=== PATIENT | male | born 1960 | race Caucasian/White ===

== ENCOUNTER 2023-04-26 16:24 | Outpatient (REF) | payer MEDICARE, MEDICAID, SELFPAY ==
[2023-04-26 18:03] LABS: Glucose Random 83 mg/dL (60-115)
[2023-04-26 18:51] LABS: Folate 10.9 ng/mL (> or = 4.0)
[2023-04-27 02:59] LABS: Vitamin B12 559 pg/mL (200-900)
[2023-04-27 05:15] LABS: Estimated Average Glucose 108 mg/dL; Hemoglobin A1c % 5.4 % (<6.0)
[2023-04-30 17:08] LABS: Vitamin B1 13 nmol/L (8-30)
[2023-05-01 15:28] LABS: Vitamin B6 14.4 ng/mL (2.1-21.7)
== END 2023-04-26 16:25 | disposition home or self-care (01) ==
LOC: HO.HHCL 16:24
PROVIDERS: Absent Provider Family Medicine; PCP Family Medicine; Visit Provider Internal Medicine
DX: M54.6 Pain in thoracic spine (principal); R73.01 Impaired fasting glucose
CPT/HCPCS: 36415; 82607; 82746; 82947; 83036; 84207; 84425

== ENCOUNTER 2023-07-19 13:34 | Outpatient (REF) | payer MEDICARE, MEDICAID, SELFPAY ==
--- NOTE | ~2023-07-19 | XR_ITS ---
EXAMINATION: XR THORACOLUMBAR SPINE CLINICAL INFORMATION: Worsening neck and back pain COMPARISON: Same-day chest, lumbar and cervical spine TECHNIQUE: 3 views of the thoracic spine FINDINGS: The vertebral alignment is normal. No intrinsic bony abnormality. The height of the vertebral bodies is well-maintained. There is mild disc space narrowing in the upper thoracic spine with anterior marginal osteophyte formation. Anterior marginal osteophyte formation is also seen in the lower thoracic spine. The paraspinal soft tissues are normal. XR/XR thoracic spine 2V IMPRESSION: 1. Mild degenerative changes. 2. No acute bony abnormality.
--- NOTE | ~2023-07-19 | XR_ITS ---
EXAMINATION: XR CERVICAL SPINE CLINICAL INFORMATION: Neck and back pain COMPARISON: None available. TECHNIQUE: 3 views of the cervical spine were obtained. FINDINGS: The tip of the odontoid is obscured on the open-mouth view. C7 is mostly obscured by the soft tissues of the patient's shoulder on the lateral view. No fracture. Prevertebral soft tissues are within normal limits. There is marked disc space narrowing with marginal osteophyte formation at C5-C6. There is mild disc space narrowing with marginal osteophyte formation at C6-C7. There is mild retrolisthesis of C3 respect to C4. XR/XR cervical spine 3V IMPRESSION: 1. Degenerative disc disease at C5-C6 and C6-C7. 2. Mild retrolisthesis of C3 respect to C4.
--- NOTE | ~2023-07-19 | XR_ITS ---
EXAMINATION: XR CHEST CLINICAL INFORMATION: Fatigue of one year's duration; former smoker; history of asthma. COMPARISON: Prior CT chest dated 12/23/2021. TECHNIQUE: Frontal and lateral views of the chest were obtained. FINDINGS: The heart, great vessels, pulmonary vasculature and mediastinum are normal. The lungs show no focal infiltrate, effusion or pneumothorax. There is no acute osseous abnormality. There is an old ununited fracture of the mid left clavicle. XR/XR chest 2V IMPRESSION: No active cardiopulmonary disease.
--- NOTE | ~2023-07-19 | XR_ITS ---
EXAMINATION: XR LUMBOSACRAL SPINE CLINICAL INFORMATION: Worsening neck and back pain COMPARISON: Same-day chest, cervical spine and thoracic spine TECHNIQUE: Three views of the lumbosacral spine. FINDINGS: There 5 nonrib-bearing lumbar-type vertebral bodies the height of vertebral bodies is well-maintained. There is straightening of the usual lumbar lordosis which can be seen with muscle spasm. There is mild disc space narrowing at L3-L4 and L4-L5. There is multilevel degenerative facet joint disease, most marked from L3 through S1. Anterior marginal osteophytes are seen at all lumbar levels. There is mild retrolisthesis of L4 with respect to L5. XR/XR lumbar spine 2-3V IMPRESSION: 1. Muscle spasm. 2. Degenerative disc disease at L3-L4 and L4-L5. 3. Multilevel degenerative facet joint disease. 4. Mild retrolisthesis of L4 with respect to L5.
== END 2023-07-19 13:35 | disposition home or self-care (01) ==
LOC: HO.HHCX 13:34
PROVIDERS: Visit Provider Family Medicine
DX: Z13.89 Encounter for screening for other disorder (principal)
CPT/HCPCS: 71046; 72040; 72070; 72100

== ENCOUNTER 2023-07-19 14:37 | Outpatient (REF) | payer MEDICARE, MEDICAID, SELFPAY ==
[2023-07-19 16:30] LABS: Hematocrit 42.9 % (42.0-52.0); Hemoglobin 14.8 g/dl (14.0-18.0); Mean Corpuscular HGB Conc 34.5 g/dl (31.0-36.0); Mean Corpuscular Hemoglobin 32.5 pg (27.0-33.0); Mean Corpuscular Volume 94.1 fL (80.0-98.0); Mean Platelet Volume 10.1 fL (9.4-12.4); Platelet Count 279 X10*3/uL (160-400); Red Blood Count 4.56 X10*6/uL (4.60-5.80); Red Cell Distribution Width 14.1 % (11.0-16.0); White Blood Count 6.5 X10*3/uL (4.8-10.8)
[2023-07-19 16:55] LABS: Alanine Aminotransferase 30 U/L (0-40); Albumin Level 4.6 g/dL (3.5-5.0); Alkaline Phosphatase 43 U/L (39-117); Anion Gap 15 (12-20); Aspartate Amino Transferase 22 U/L (5-37); Bilirubin Direct 0.2 mg/dL (0.0-0.5); Bilirubin Total 0.7 mg/dL (0.0-1.0); Blood Urea Nitrogen 21 mg/dL (9-16); Carbon Dioxide 23 mmol/L (22-29); Chloride 108 mmol/L (96-108); Cholesterol 233 mg/dL (<200); Estimated Glomerular Filt Rate > 60; Glucose Random 84 mg/dL (60-115); HDL Cholesterol 61 mg/dL (>40); LDL Cholesterol Calculated 134 mg/dL (<100); Potassium 4.6 mmol/L (3.3-5.1); Sodium 141 mmol/L (135-145); Total Protein 7.6 g/dL (6.5-8.0); Triglycerides 192 mg/dL (<150)
[2023-07-19 17:05] LABS: Estimated Average Glucose 114 mg/dL; Hemoglobin A1c % 5.6 % (<6.0)
[2023-07-19 17:17] LABS: Thyroid Stimulating Hormone 1.63 uIU/mL (0.32-4.0); Vitamin D 25-OH Total 47.4 ng/mL (>30)
[2023-07-19 17:23] LABS: Folate 12.3 ng/mL (> or = 4.0); Vitamin B12 666 pg/mL (200-900)
[2023-07-20 04:30] LABS: HBS Num1 26.95 mIU/mL (0-7.99); HBsAGNum1 0.23 S/CO (0.00-0.99); HIV AB/AG Nonreactive (Nonreactive); HIV Num 1 0.05 S/CO (0.00-0.99); Hepatitis B Surface Antigen Negative (Negative); ~HepC Num1 10.11 S/CO (0.00-0.79); ~Hepatitis B Surface Antibody REACTIVE (Nonreactive); ~Hepatitis C Antibody Reactive (Nonreactive)
[2023-07-20 05:46] LABS: CT PCR NOT DETECTED (Not Detect.); NG PCR NOT DETECTED (Not Detect.)
[2023-07-20 09:08] LABS: RPR Rapid Plasma Reagin NON-REACTIVE (NON-REACTIVE)
[2023-07-21 18:33] LABS: HCV Log PCR <1.18 NOT DETECTED Log IU/mL (NOT DETECTED); HepC Viral Load <15 NOT DETECTED IU/mL (NOT DETECTED)
[2023-07-23 16:53] LABS: Testosterone, Total 337 ng/dL (250-1100)
== END 2023-07-19 14:38 | disposition home or self-care (01) ==
LOC: HO.HHCL 14:37
PROVIDERS: Visit Provider Family Medicine
DX: Z11.59 Encounter for screening for other viral diseases (principal); Z11.4 Encounter for screening for human immunodeficiency virus [HIV]; M54.2 Cervicalgia; G89.29 Other chronic pain; M54.9 Dorsalgia, unspecified; Z72.89 Other problems related to lifestyle; R53.83 Other fatigue; Z20.2 Contact with and (suspected) exposure to infections with a predominantly sexual mode of transmission; R79.9 Abnormal finding of blood chemistry, unspecified; G47.33 Obstructive sleep apnea (adult) (pediatric); Z87.891 Personal history of nicotine dependence
CPT/HCPCS: 0353U; 36415; 71046; 72040; 72070; 72100; 80048; 80061; 80076; 82306; 82607; 82746; 83036; 84403; 84425; 84439; 84443; 85027; 86592; 86706; 86803; 87340; 87389; 87522

== ENCOUNTER 2023-10-04 07:58 | Outpatient (REF) | payer MEDICARE, MEDICAID, SELFPAY ==
--- NOTE | ~2023-10-04 | US_ITS ---
EXAMINATION: US ABDOMEN COMPLETE CLINICAL INFORMATION: Fatty liver, follow up. COMPARISON: CT chest 12/23/2021. TECHNIQUE: Real-time imaging of the abdominal viscera. FINDINGS: PANCREAS: Pancreas could not be seen as it was obscured by bowel gas. ABDOMINAL AORTA: The proximal, mid, and distal segments are normal in caliber. INFERIOR VENA CAVA: Visualized portions are normal. LIVER: The liver is normal in size. The liver contour is normal. Parenchymal echogenicity is normal. No focal hepatic lesion. There is no intrahepatic biliary duct dilatation seen. GALLBLADDER: Normal. The gallbladder is physiologically distended without evidence of stones, sludge, polyps, wall thickening or pericholecystic fluid. COMMON BILE DUCT: Normal in caliber measuring 0.3 cm in diameter. RIGHT KIDNEY: No hydronephrosis or renal calculi. The kidney measures 12.2 cm in maximum dimension. A benign 0.9 cm mid renal Bosniak class I renal cyst is noted which requires no additional imaging or follow up. No solid renal masses are seen. LEFT KIDNEY: Normal. No hydronephrosis. No renal calculi or focal parenchymal lesions. The kidney measures 11.7 cm in maximum dimension. SPLEEN: Normal. The spleen measures 8.5 cm in maximum dimension. FREE FLUID: None. US/US abdomen complete IMPRESSION: No significant abnormality is seen.
--- NOTE | 2023-10-04 08:40 | HM_ITS ---
Conclusion: 1. Patient was monitored for total period of 1 day and 3 hours 2. Baseline was normal sinus rhythm with average heart of 83 beats per minute 3. No significant pauses noted 4. Very frequent PACs noted with total burden of 21.5% with frequent short runs of SVTs, longest lasting 11 beats and the fastest 120 beats per minute consistent with atrial tachycardia 5. Frequent PVCs noted with total burden of 1.5% 6. No patient reported events MTDD
== END 2023-10-04 07:59 | disposition home or self-care (01) ==
LOC: HO.US 07:58
PROVIDERS: PCP Family Medicine; Visit Provider Family Medicine
DX: K76.0 Fatty (change of) liver, not elsewhere classified (principal); I49.1 Atrial premature depolarization
CPT/HCPCS: 76700; 93225

== ENCOUNTER → 2023-10-04 08:40 | Outpatient (BNV) | payer MEDICARE, MEDICAID, SELFPAY | PROVIDERS: PCP Family Medicine; Visit Provider Internal Medicine Cardiovascular Disease | DX: I49.1 Atrial premature depolarization (principal); I49.3 Ventricular premature depolarization | CPT/HCPCS: 93227 ==

== ENCOUNTER → 2023-10-06 20:30 | Outpatient (REF) | payer MEDICARE, MEDICAID, SELFPAY | LOC: HO.SL 20:30 | PROVIDERS: PCP Family Medicine; Visit Provider Family Medicine | DX: Z13.89 Encounter for screening for other disorder (principal) ==

== ENCOUNTER 2023-12-02 11:42 | Outpatient (REF) | payer MEDICARE, MEDICAID, SELFPAY ==
--- NOTE | ~2023-12-02 | XR_ITS ---
EXAMINATION: XR SACRUM AND COCCYX CLINICAL INFORMATION: Fell on ImaCore 5 days ago. Now with persistent pain. COMPARISON: None available. TECHNIQUE: 2 views of the sacrum and 2 views of the coccyx were obtained. FINDINGS: No acute fracture identified. Partially imaged left femoral intramedullary fixation diego and screw. No bone, joint or soft tissue abnormality is appreciated. Mild degenerative changes of the incidentally visualized lower lumbar spine. Aortoiliac calcification. XR/XR sacrum coccyx min 2V IMPRESSION: Unremarkable examination. Electronically signed by: Kaleb Biggs MD 12/02/2023 02:31 PM EDT
== END 2023-12-02 11:43 | disposition home or self-care (01) ==
LOC: HO.HHCX 11:42
PROVIDERS: Visit Provider Family Medicine
DX: M53.3 Sacrococcygeal disorders, not elsewhere classified (principal)
CPT/HCPCS: 72220

== ENCOUNTER 2024-03-23 09:57 | Outpatient (AMB) | payer MEDICARE, MEDICAID, SELFPAY ==
--- NOTE | 2024-03-23 09:59 | MHC.OFFVIS ---
Vital Signs 03/23/24 10:00 Height 5 ft 8 in Weight 231 lb 7.766 oz BMI 35.2 BP 122/78 Blood Pressure Location Lt brachial Position Sitting Pulse 92 Intake Visit Reasons: AWAKE OVERNIGHT MONITOR/ Dr Benites/ supraventricular premature beats Intake Note: New patient PVC had holter had echo at [facility] [place] feeling fine [employer] Estimator Required: No Packaging Supervisor: Packaging Supervisor Present Accompanied by: Spouse Allergies No Known Allergies Allergy (Verified 03/23/24 10:05) Medication List - Last Reconciled 03/23/24 by Jose Fatima MD No Known Home Meds HPI Comments Details: Bhupinder was referred here for management of cardiac arrhythmias. He is a 64-year-old male with prior history of sleep apnea, said has had sleep apnea for many years but currently not on CPAP therapy as he thinks he got a pulmonary infection related to his old CPAP machine. He had a recent sleep study which shows very severe obstructive sleep apnea. Has not seen a sleep specialist as yet. He also had a event monitor done for irregular heartbeat which showed frequent PACs with short bursts of SVT without any evidence of atrial fibrillation. He also had frequent PVCs. He said he was known to have irregular heartbeats since he was a teenager. He denies any symptoms of chest pain or shortness of breath. Complains of increased fatigue over the last year. He was no clear heart failure symptoms of orthopnea, PND, leg edema. Denies any exertional chest pain. He was referred here for further management of cardiac arrhythmias although he is very evasive about the whole healthcare system. Echocardiogram done last summer at [facility] showed normal LV ejection fraction with normal left atrial chamber size with mildly dilated ascending aorta normal cardiac valvular function [facility] Medical History Severe obstructive sleep apnea Surgical History History of surgery on lower extremity Hx of knee surgery Family History Father Diabetes Mother No problems noted. Social History Patient Tobacco Use Status: Former Tobacco user Review of Systems Const Denies chills, Denies daytime sleepiness, Denies fatigue, Denies fever(s), Denies frequent falls, Denies poor appetite, Denies snoring, Denies stops breathing during sleep, Denies weakness, Denies weight gain and Denies weight loss Eyes Denies loss of vision ENT Denies dizziness and Denies hearing loss Card Denies chest pain, Denies claudication, Denies leg edema, Denies lightheadedness, Denies palpitations, Denies dyspnea, Denies dyspnea on exertion and Denies orthopnea Resp Denies cough, Denies excessive phlegm production, Denies dyspnea, Denies dyspnea on exertion, Denies snoring and Denies wheezing GI Denies abdominal pain, Denies hematochezia, Denies change in bowel habits, Denies nausea and Denies vomiting Denies dysuria and Denies urinary frequency Musc Denies arthralgias, Denies muscle weakness, Denies numbness and Denies other (frequent falls) Skin/Breast Denies nail changes and Denies rash Neuro Denies Abnormal speech present, Denies dizziness, Denies frequent falls, Denies loss of vision, Denies memory loss, Denies numbness and Denies weakness Psych Denies depression and Denies memory loss Endo Denies fatigue and Denies palpitations Wm/Lymph Reports easy bruising and Reports other (anemia) Aller/Immun Denies wheezing Physical Exam Vital Signs: Last Vital Signs Pulse 92 03/23/24 10:00 BP 122/78 03/23/24 10:00 BMI result Body Mass Index 35.2 Const General: cooperative, comfortable, no acute distress, alert and awake Nutritional Appearance: obese Orientation/consciousness: patient oriented x3 Limitations: no limitations HEENT Head: Yes normocephalic and Yes atraumatic Neck Neck: Yes trachea midline, Yes supple and Yes no JVD Resp Effort & Inspection: normal respiratory effort Auscultation: clear to auscultation bilaterally Cardio Jugular venous distension: no JVD Palpation: normal PMI Rate: regular rate Rhythm: abnormal rhythm with ectopic beats GI Auscultation: normal bowel sounds Skin General skin exam: no rashes or lesions noted Neuro General: patient oriented x3 and no focal motor deficits Speech: No Abnormal speech present Extrem General: Yes no clubbing, cyanosis or edema Psych Appearance: grossly normal Office Procedures EKG Details: EKG shows normal sinus rhythm with frequent PVCs with slightly variable inter coupling [id number], Complete Assessment & Plan Assessment & Plan (1) Cardiac arrhythmia: Code(s): I49.9 - Cardiac arrhythmia, unspecified Category: Medical Plan: Frequent PACs with short burst of SVT without any evidence of atrial fibrillation as well as frequent PVCs which also noted on today's EKG. Patient has absolutely no symptoms related to it. Most likely cause for his cardiac arrhythmias are underlying untreated obstructive sleep apnea which is very severe. Have taken the liberty to refer him to sleep specialist for further management of sleep apnea which should help with management of his cardiac arrhythmias. Discussed about management of cardiac arrhythmias especially frequent cardiac arrhythmias to reduce cardiac excitability with beta-john therapy. He is very resistant or hesitant to start therapy at this point time. Like to do some more office research. We discussed about it. Advised to avoid stimulants such as caffeine and alcohol. Discussed pathophysiology of cardiac arrhythmias. Advised to seek emergency care if he was sudden-onset severe palpitation prolonged irregular heartbeat as he is at risk for development of atrial fibrillation. Participate in weight loss program was discussed. He agrees to take metoprolol therapy I would like to perform a repeat Holter monitor on metoprolol therapy to assess response. He will think about it Will follow up in the clinic if need be. Thank you for allowing me to partake in his care Orders: Referrals Sleep Medicine Referral G47.33 - Obstructive sleep apnea (adult) (pediatric) Coding Level of Care Code New Pt Level 4 (00092) Complex EM visit Add On G2211 Diagnoses Cardiac arrhythmia I49.9 CPT Codes EKG - CPT: 39523-[id number], Complete ([id number])
[2024-03-23 10:00] VITALS: BP 122/78; PULSE 92; BMI 35.2
== END 2024-03-23 10:38 | disposition home or self-care (01) ==
PROVIDERS: PCP Family Medicine; Visit Provider Internal Medicine Cardiovascular Disease
DX: I49.9 Cardiac arrhythmia, unspecified (principal)
CPT/HCPCS: 93010; 99214; G2211

== ENCOUNTER → 2024-03-23 09:57 | Outpatient (BNVA) | payer MEDICARE, MEDICAID, SELFPAY | PROVIDERS: PCP Family Medicine; Visit Provider Internal Medicine Cardiovascular Disease | DX: I49.9 Cardiac arrhythmia, unspecified (principal); R94.31 Abnormal electrocardiogram [ECG] [EKG] | CPT/HCPCS: 93005; 99212 ==

== ENCOUNTER 2024-05-10 12:44 | Outpatient (REF) | payer MEDICARE, MEDICAID, SELFPAY ==
--- NOTE | ~2024-05-10 | XR_ITS ---
EXAMINATION: XR CHEST CLINICAL INFORMATION: f/u pna COMPARISON: 07/19/2023. TECHNIQUE: 2 views of the chest were obtained. FINDINGS: The cardiac, hilar, and mediastinal contours are normal. The lungs are clear bilaterally. There is no pneumothorax or pleural effusion. 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 Soft tissues appear normal. XR/XR chest 2V IMPRESSION: No active pulmonary disease. Electronically signed by: Bienvenido Rainey MD 05/10/2024 01:43 PM EST
--- OUTSIDE RECORDS SUMMARY | 2024-05-10 15:37 | XMS_ITS | Encounter Summary ---
Author Organization [employer] Address [address] [facility] [address] [place] [address] Care Team Providers Care Jailer Name Role Phone JenniferNatalie blue Primary Care Provider [phone] Encounter Details Date Type Department Care Team (Latest Contact Info) Description 04/26/2024 Travel Social History Tobacco Use Types Packs/Day Years Used Date Smoking Tobacco: Former Cigarettes Q uit: 03/15/2023 Smokeless Tobacco: Never Alcohol Use Standard Drinks/Week Comments Not Currently 0 (1 standard drink = 0.6 oz pur e alcohol) oca Housing Stability Answer Date Recorded What is your housing situation today? I have giovanna quan 01/15/[address] you li ve. Do you have problems with any of the following? None of the above 01/15/2023 Food Insecurity Answer Date Recorded Within the past 12 months, y ou worried that your food would run out before you got money to buy more: Never True 01/15/2023 Within the past 12 months,th e food you bought just didn't last and you didn't have enough money to get more: Never True 05/2022 Transportation Answer Date Recorded In the past 12 months, has l ack of transportation kept you from medical appts, meetings, work or from getting things needed for daily living? No 01/15/2023 Utilities Answer Date Recorded In the past 12 months, has t he electric, gas, oil or water company threatened to shut off services in your home? No 01/15/2023 Depression Answer Date Recorded Patient Health Questionnaire-2 Score 0 04/26/2023 Sex and Gender Information Value Date Recorded Sex Assigned at Male 01/12/2022 10:23 AM EDT Legal Sex Male 10:23 AM EDT Gender Identity Male 07/30/2022 10:45 AM EDT Sexual Orientation Straight 07/30/2022 10 :51 AM EDT documented as of this encounter Plan of Treatment Not on file documented as of this encounter Visit Diagnoses Not on filedocumented in this encounter Care Teams Jailer Relationship Specialty Start Date End Date Natalie Benites DO [address] [place] [id number] PCP - General Family Medicine 07/30/22 documented as of this encounter
--- OUTSIDE RECORDS SUMMARY | 2024-05-10 15:37 | XMS_ITS | Encounter Summary ---
Author Organization [employer] Address [address] [facility] [address] [place] [address] Care Team Providers Care Directory Carrier Name Role Phone JenniferNatalie blue Primary Care Provider [phone] Encounter Details Date Type Department Care Team (Latest Contact Info) Description 05/10/2024 Travel Social History Tobacco Use Types Packs/Day Years Used Date Smoking Tobacco: Former Cigarettes Q uit: 03/15/2023 Smokeless Tobacco: Never Alcohol Use Standard Drinks/Week Comments Not Currently 0 (1 standard drink = 0.6 oz pur e alcohol) oca Depression Answer Date Recorded Patient Health Questionnaire-9 Score 5 05/10/2024 Patient Health Questionnaire-9 Score 5 05/10/2024 Last PHQ-9: Questionnaire Data Not on file 0 05/10/2024 Housing Stability Answer Date Recorded What is your housing situation today? I have giovannajason quan 05/10/[address] you li ve. Do you have problems with any of the following? Mold;Oven or stove not working 05/10/2024 Food Insecurity Answer Date Recorded Within the past 12 months, y ou worried that your food would run out before you got money to buy more: Never True 05/10/2024 Within the past 12 months,th e food you bought just didn't last and you didn't have enough money to get more: Never True Transportation Answer Date Recorded In the past 12 months, has l ack of transportation kept you from medical appts, meetings, work or from getting things needed for daily living? No 05/10/2024 Utilities Answer Date Recorded In the past 12 months, has t he electric, gas, oil or water company threatened to shut off services in your home? No 05/10/2024 Depression Answer Date Recorded Patient Health Questionnaire-2 Score 1 05/10/2024 Internet Access Answer Date Recorded Internet Access Q1 Yes 05/10/2024 Internet Access Q2 Not on file 05/10/2024 Sex and Gender Information Value Date Recorded Sex Assigned at Male 01/12/2022 10:23 AM EDT Legal Sex Male 10:23 AM EDT Gender Identity Male 07/30/2022 10:45 AM EDT Sexual Orientation Straight 07/30/2022 10 :51 AM EDT documented as of this encounter Plan of Treatment Not on file documented as of this encounter Visit Diagnoses Not on filedocumented in this encounter Additional Health Concerns Assessment Noted Time PHQ-9 Depression Total Score: 5 05/10/19 25 1:24 PM EST documented as of this encounter Care Teams Directory Carrier Relationship Specialty Start Date End Date Natalie Benites DO [address] [place] [address] PCP - General Family Medicine 07/30/22 documented as of this encounter
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
--- OUTSIDE RECORDS SUMMARY | 2024-05-10 15:37 | XMS_ITS | Encounter Summary ---
Author Organization [employer] Address [address] [place] [address] [address] [place] [address] Care Team Providers Care Arresting Gear Operator Name Role Phone Natalie Benites DO Primary Care Provider + [phone] Reason for Visit * Reason Onset Date Comments Appointment Request 04/26/2024 Encounter Details Date Type Department Care Team ([facility] st Contact Info) Description 04/26/2024 Telephone [facility] [address] [place], [place] [phone] Natalie Benites DO [address] [place], [place] [phone] Appointment Request Social History Tobacco Use Types Packs/Day Years [...] AM EDT documented as of this encounter Miscellaneous Notes * Telephone Encounter - Anne-Marie Guzman MA - 04/26/2024 10:10 AM EST Spoke with patient schedule sick visit 05/10/24 at 11:15am per PCP. documented in this encounter Plan of Treatment Not on file documented as of this encounter Visit Diagnoses Not on filedocumented in this encounter Care Teams Arresting Gear Operator Relationship Specialty Start Date End Date Natalie Benites DO [address] [place] [address] PCP - General Family Medicine 07/30/22 documented as of this encounter
--- OUTSIDE RECORDS SUMMARY | 2024-05-10 15:37 | XMS_ITS | Encounter Summary ---
Author Organization [employer] Address [address] [place] [address] [address] [place] [address] Care Team Providers Care Powertrain Control Systems Engineer Name Role Phone Natalie Benites DO Primary Care Provider + [phone] Reason for Visit * Reason Onset Date Comments Appointment Request 04/20/2024 Encounter Details Date Type Department Care Team ([facility] st Contact Info) Description 04/20/2024 Telephone [facility] [address] [place], [place] [phone] Natalie Benites DO [address] [place], [place] [phone] Appointment Request Social History Tobacco Use Types [...] Telephone Encounter - Anne-Marie Guzman MA - 04/20/2024 11:47 AM EST Left message to patient vm to call PCP office to schedule appt. documented in this encounter Plan of Treatment Not on file documented as of this encounter Visit Diagnoses Not on filedocumented in this encounter Care Teams Powertrain Control Systems Engineer Relationship Specialty Start Date End Date Natalie Benites DO [address] [place] [address] PCP - General Family Medicine 07/30/22 documented as of this encounter
--- OUTSIDE RECORDS SUMMARY | 2024-05-10 15:37 | XMS_ITS | Encounter Summary ---
Author Organization [employer] Address [address] [facility] [address] [place] [address] Care Team Providers Care Rug Cleaner Name Role Phone Kamari Natalie Primary Care Provider + [phone] Reason for Visit * Reason Comments Rib sore Encounter Details Date Type Department Care Team ([facility] st Contact Info) Description 04/28/2024 10:40 AM EST Office Visit [facility] [address] [place] [address] Shonna Mead MD [address] [place] [phone] Costochondritis, acute (Primary Dx) Social History Tobacco Use Types Packs/Day Years [...] AM EDT documented as of this encounter Last Filed Vital Signs Vital Sign Reading Time Taken Comments Blood Pressure 146/90 04/28/2024 10:07 AM EST Pulse 104 04/28/2024 10:07 AM EST Temperature 36.7 ??C (98 ??F) 04/28/2024 10:07 AM EST Respiratory Rate 20 04/28/2024 10:07 AM EST Oxygen Saturation 97% 04/28/2024 10:07 AM EST Inhaled Oxygen Concentration - - Weight 105 kg (231 lb 9.6 oz) 04/28/2024 10:07 A M EST Height 172.7 cm (5' 8 ) 04/28/2024 10:07 AM EST Body Mass Index 35.21 04/28/2024 10:07 AM EST documented in this encounter Progress Notes * Shonna Mead MD - 04/28/2024 10:40 AM EST Subjective Patient ID: Bhupinder Neal is a 64 y.o. male who presents for Rib sore. Chest Pain This is a new problem. The current episode started in the past 7 days. The onset quality is gradual. The problem has been unchanged. Pain location: rib ribs. The quality of the pain is described as dull. Review of Systems Constitutional: Negative. Respiratory: Negative. Cardiovascular: Negative. Negative for chest pain. Gastrointestinal: Negative. Genitourinary: Negative. Objective Physical Exam Constitutional: Appearance: Normal appearance. Cardiovascular: Rate and Rhythm: Normal rate and regular rhythm. Pulmonary: Effort: Pulmonary effort is normal. Breath sounds: Normal breath sounds. Chest: Chest wall: Tenderness present. Neurological: General: No focal deficit present. Mental Status: He is alert. Psychiatric: Mood and Affect: Mood normal. Behavior: Behavior normal. Assessment/Plan Diagnoses and all orders for this visit: Costochondritis, acute Comments: Advised to ice the area Advised warm compress Started on Topical voltaren gel .Ibuprofen as needed Other orders - fluticasone (Flovent) 44 MCG/ACT inhaler; Inhale 2 puffs in the morning and at bedtime. Rinse mouth with water after use to reduce aftertaste and incidence of candidiasis. Do not swallow. - albuterol (2.5 MG/3ML) 0.083% nebulizer solution; Take 3 mL (2.5 mg) by nebulization every 6 (six) hours if needed for wheezing. documented in this encounter Plan of Treatment Not on file documented as of this encounter Visit Diagnoses Diagnosis Costochondritis, acute- Primary documented in this encounter Care Teams Rug Cleaner Relationship Specialty Start Date End Date Natalie Benites DO [address] [place] [phone] PCP - General Family Medicine 07/30/22 documented as of this encounter
--- OUTSIDE RECORDS SUMMARY | 2024-05-10 15:37 | XMS_ITS | Encounter Summary ---
Author Organization [employer] Address [address] [place] [address] Care Team Providers Care Roof Bolter Helper Name Role Phone Natalie Benites DO Primary Care Provider [phone] Reason for Referral * Consultation (Routine) - Pending Review Specialty Diagnoses / Procedures Referred By Contac t Referred To Contact Cardiothoracic Surgery Diagnoses History of tobacco use Natalie Benites DO [address] [place] [address] Phone: tel: fax: Referral ID Status Reason Start Date Expiration Date Visits Requested Visits Authorized [id number] Pending Review Specialty Services Required 05/10/2024 05/10/2025 1 1 * Consultation (Urgent) - Pending Review Specialty Diagnoses / Procedures Referred By Contac t Referred To Contact Pulmonary Disease Diagnoses Chest congestion Natalie Benites DO [address] [place] [address] Phone: tel: fax: Referral ID Status Reason Start Date Expiration Date Visits Requested Visits Authorized [id number] Pending Review Specialty Services Required 05/10/2024 05/10/2025 1 1 * PFT (Routine) - Authorized Specialty Diagnoses / Procedures Referred By Contac t Referred To Contact Diagnoses Chest congestion Procedures Pulmonary Function Test Natalie Benites DO [address] [place] [address] Phone: tel: fax: [facility] [address], [place] Phone: tel: fax: Referral ID Status Reason Start Date Expiration Date V isits Requested Visits Authorized [id number] Authorized 05/10/2024 05/10/2025 1 1 Encounter Details Date Type Department Care Team (Late st Contact Info) Description 05/10/2024 11:15 AM EST Office Visit [facility] [address] [place], [place] [id number] Natalie Benites DO [address] [place] [address] Pneumonia of left lung due to infectious organism, unspecified part of lung (Primary Dx); Chest congestion; Obstructive sleep apnea; Cardiac arrhythmia, unspecified cardiac arrhythmia type; History of tobacco use Social History Tobacco Use Types Packs/Day Years [...] Mass Index 35.7 05/10/2024 11:16 AM EST documented in this encounter Plan of Treatment Scheduled Orders Name Type Priority Associated Diagnoses Orde r Schedule Pulmonary Function Test PFT Routine Chest congestion Expected: 05/10/2024, Expires: 11/07/2024 Scheduled Referrals Name Type Priority Associated Diagnoses Order Schedule Referral to Pulmonology Outpatient Referral Urgent Chest congestion Expected: 05/10/2024 (Approximate), Expires: 05/10/2025 Referral to Cardiothoracic Surgery Outpatient Referral Routine History of tobacco use Expected: 05/10/2024 (Approximate), Expires: 05/10/2025 documented as of this encounter Procedures Procedure Name Priority Date/Time Associated Diagnosis Comments XR CHEST 2 VIEWS STAT 05/10/2024 12:4 5 PM EST Pneumonia of left lung due to infectious organism, unspecified part of lung documented in this encounter Results * XR Chest 2 Views (05/10/2024 12:45 PM EST) Anatomical Region Laterality Modality Chest Radiographic Suad ging 05/10/2024 12:4 5 PM EST Narrative 05/10/2024 1:46 PM EST ?[facility] ?[address] ?[place] [id number] ?XRay Report ? Signed ? Patient: Ángel,Bhupinder M ?MR#: [id number] ?? [id number] ? : 1960 ?Acct:[id number] ? Age/Sex: 64 / M ?ADM Date: 05/10/24 ? Loc: HO.HHCX ? Attending Dr: Natalie Benites DO ? Ordering Physician: Natalie Benites DO ?? Date of Service: 05/10/24 ?? Procedure(s): XR chest 2V ?? Accession Number(s): [id number] ? cc: Natalie Benites DO ? EXAMINATION: ?? XR CHEST [...] DD/ 1245 ? TD/TT: 05/10/24 1300 ? Assistant Basketball Coach: ? Procedure Note Lizzie, Yas - 05/10/2024 [facility] [address] [place] [address] XRay Report Signed Patient: Bhupinder Neal [facility]#: [id number] : 9Acct:[id number] Age/Sex: 64 / MADM Date: 05/10/24 Loc: HO.HHCX Attending Dr: Natalie Benites DO Ordering Physician: Natalie Benites DO Date of Service: 05/10/24 Procedure(s): XR chest 2V Accession Number(s): [id number] cc: Natalie Benites DO EXAMINATION: XR CHEST [...] Bienvenido Rainey MD 05/10/2024 01:43 PM EST Dictated By: Bienvenido Rainey MD Signed By: <Electronically signed by Bienvenido Rainey MD in OV> 05/10/24 1343 DD/ 1245 TD/TT: 05/10/24 1300 Assistant Basketball Coach: Natalie Benites DO IMG XR PROCEDURES Final Resu lt documented in this encounter Visit Diagnoses Diagnosis Pneumonia of left lung due to infectious organism, unspecified part of lung- Primary Chest congestion Other symptoms involving respiratory system and chest Obstructive sleep apnea Obstructive sleep apnea (adult) (pediatric) Cardiac arrhythmia, unspecified cardiac arrhythmia type History of tobacco use Personal history of tobacco use, presenting hazards to health documented in this encounter Additional Health Concerns Assessment Noted Time PHQ-9 Depression Total Score: 5 05/10/19 25 1:24 PM EST documented as of this encounter Care Teams Roof Bolter Helper Relationship Specialty Start Date End Date Natalie Benites DO [address] [place] [address] PCP - General Family Medicine 07/30/22 documented as of this encounter
== END 2024-05-10 12:45 | disposition home or self-care (01) ==
LOC: HO.HHCX 12:44
PROVIDERS: Visit Provider Family Medicine
DX: J18.9 Pneumonia, unspecified organism (principal)
CPT/HCPCS: 71046

== ENCOUNTER → 2024-05-10 12:45 | Outpatient (BNV) | payer MEDICARE, MEDICAID, SELFPAY | PROVIDERS: Visit Provider Radiology Diagnostic Radiology | DX: J18.9 Pneumonia, unspecified organism (principal) | CPT/HCPCS: 71046 ==

== ENCOUNTER 2024-11-17 11:43 | Outpatient (REF) | payer MEDICARE, MEDICAID, SELFPAY ==
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
--- OUTSIDE RECORDS SUMMARY | 2024-11-17 12:33 | XMS_ITS ---
Author Name [facility] Organization Unknown Care Team Organization Name Specialty Phone Email Start Date End Da te [facility] Anil Bateman [facility] 01/20/2022 11/01/19 24
--- OUTSIDE RECORDS SUMMARY | 2024-11-17 12:33 | XMS_ITS | Encounter Summary ---
Author Organization [employer] Address [address] [place] [address] [address] [place] [address] Care Team Providers Care Statistical Technician Name Role Phone Natalie Benites DO Primary Care Provider [phone] Encounter Details Date Type Department Care Team (Late st Contact Info) Description 11/17/[address] [facility] [address] [place] [address] Natalie Benites DO [address] [place] [address] Fatty liver (Primary Dx); Other hyperlipidemia; Body mass index (BMI) 35.0-35.9, adult; Abnormal finding of blood chemistry, unspecified; Encounter for screening for infections with a predominantly sexual mode of transmission; Other fatigue; Mixed hyperlipidemia Social History Tobacco Use Types Packs/Day Years [...] AM EDT documented as of this encounter Progress Notes * Natalie Benites DO - 11/17/2024 11:33 AM EDT Labs ordered for next visit. documented in this encounter Plan of Treatment Upcoming Encounters Date Type Department Care Team (Late st Contact Info) Description 11/24/2024 10:30 AM EDT Office Visit [facility] [address] [place] [address] Natalie Benites DO [address] [place] [address] Scheduled Orders Name Type Priority Associated Diagnoses Orde r Schedule T4, Free Lab Routine Fatty liver Other hyperlipidemia Expected: 11/17/2024 (Approximate), Expires: 11/17/2025 Lipid Panel, Standard Lab Routine Fatty liver Other hyperlipidemia Expected: 11/17/2024 (Approximate), Expires: 11/17/2025 TSH Lab Routine Fatty liver Other hyperlipidemia Expected: 11/17/2024 (Approximate), Expires: 11/17/2025 Vitamin D, 25-Hydroxy, Total, Immunoassay Lab Routine Fatty liver Other hyperlipidemia Body mass index (BMI) 35.0-35.9, adult Expected: 11/17/2024 (Approximate), Expires: 11/17/2025 Hepatic Function Panel Lab Routine Fatty liver Other hyperlipidemia Expected: 11/17/2024 (Approximate), Expires: 11/17/2025 Hemoglobin A1c Lab Routine Fatty liver Other hyperlipidemia Abnormal finding of blood chemistry, unspecified Expected: 11/17/2024 (Approximate), Expires: 11/17/2025 CBC Lab Routine Fatty liver Other hyperlipidemia Expected: 11/17/2024, Expires: 11/17/2025 Basic Metabolic Panel Lab Routine Fatty liver Other hyperlipidemia Expected: 11/17/2024 (Approximate), Expires: 11/17/2025 Chlamydia/N. Gonorrhoeae RNA, TMA, Urogenitial Microbiology Routine Fatty liver Other hyperlipidemia Encounter for screening for infections with a predominantly sexual mode of transmission Expected: 11/17/2024 (Approximate), Expires: 11/17/2025 HIV-1/2 Antigen and Antibodies, Fourth Generation, with Reflexes Lab Routine Fatty liver Other hyperlipidemia Other fatigue Expected: 11/17/2024 (Approximate), Expires: 11/17/2025 Hepatitis C Antibody with Reflex to HCV, RNA, Quantitative, Real-Time PCR Lab Routine Fatty liver Other hyperlipidemia Expected: 11/17/2024, Expires: 11/17/2025 RPR (Monitor) with Reflex to Titer Lab Routine Fatty liver Other hyperlipidemia Encounter for screening for infections with a predominantly sexual mode of transmission Expected: 11/17/2024, Expires: 11/17/2025 Alpha-Fetoprotein, Tumor Marker Lab Routine Fatty liver Other hyperlipidemia Mixed hyperlipidemia Expected: 11/17/2024 (Approximate), Expires: 11/17/2025 documented as of this encounter Visit Diagnoses Diagnosis Fatty liver- Primary Other chronic nonalcoholic liver disease Other hyperlipidemia Body mass index (BMI) 35.0-35.9, adult Abnormal finding of blood chemistry, unspecified Encounter for screening for infections with a predominantly sexual mode of transmission Other fatigue Mixed hyperlipidemia documented in this encounter Additional Health Concerns Assessment Noted Time PHQ-9 Depression Total Score: 5 05/10/19 25 1:24 PM EST documented as of this encounter Care Teams Statistical Technician Relationship Specialty Start Date End Date Natalie Benites DO [address] [place] [address] PCP - General Family Medicine 07/30/22 documented as of this encounter
[2024-11-17 13:32] LABS: Hematocrit 42.3 % (42.0-52.0); Hemoglobin 14.5 g/dl (14.0-18.0); Mean Corpuscular HGB Conc 34.3 g/dl (31.0-36.0); Mean Corpuscular Hemoglobin 32.2 pg (27.0-33.0); Mean Corpuscular Volume 94.0 fL (80.0-98.0); NRBC Abs Auto 0.000 X10*3/uL (0.0-0.012); NRBC Pct Auto 0.0 /100WBC (0.0-0.2); Platelet Count 275 X10*3/uL (160-400); Red Blood Count 4.50 X10*6/uL (4.60-5.80); White Blood Count 6.0 X10*3/uL (4.8-10.8)
[2024-11-17 13:45] LABS: Hemoglobin A1C 151.9296 umol/L; Total Hemoglobin (HGBA1C) 3827.4083 umol/L
[2024-11-17 13:50] LABS: Alanine Aminotransferase 29 U/L (0-40); Albumin Level 4.6 g/dL (3.5-5.0); Alkaline Phosphatase 45 U/L (39-117); Anion Gap 12 (12-20); Aspartate Amino Transferase 35 U/L (5-37); Blood Urea Nitrogen 16 mg/dL (9-16); Calcium 9.4 mg/dL (8.4-10.2); Carbon Dioxide 25 mmol/L (22-29); Chloride 105 mmol/L (96-108); Cholesterol 224 mg/dL (<200); Estimated Glomerular Filt Rate > 60; HDL Cholesterol 59 mg/dL (>40); Potassium 4.3 mmol/L (3.3-5.1); Sodium 138 mmol/L (135-145); Total Protein 7.1 g/dL (6.5-8.0); Triglycerides 103 mg/dL (<150)
[2024-11-17 14:15] LABS: Free T4 (Free Thyroxine) 0.87 ng/dL (0.71-1.85); Thyroid Stimulating Hormone 1.58 uIU/mL (0.32-4.0)
[2024-11-20 04:01] LABS: HIV Num 1 0.06 S/CO (0.00-0.99); ~HepC Num1 9.17 S/CO (0.00-0.79); ~Hepatitis C Antibody Reactive (Nonreactive)
[2024-11-22 17:00] LABS: HCV Log PCR <1.18 NOT DETECTED Log IU/mL (NOT DETECTED); HepC Viral Load <15 NOT DETECTED IU/mL (NOT DETECTED)
== END 2024-11-17 11:44 | disposition home or self-care (01) ==
LOC: HO.HHCL 11:43
PROVIDERS: PCP Family Medicine; Visit Provider Family Medicine
DX: Z11.3 Encounter for screening for infections with a predominantly sexual mode of transmission (principal); Z11.4 Encounter for screening for human immunodeficiency virus [HIV]; Z11.59 Encounter for screening for other viral diseases; K76.0 Fatty (change of) liver, not elsewhere classified; R53.83 Other fatigue; E78.2 Mixed hyperlipidemia; Z68.35 Body mass index [BMI] 35.0-35.9, adult; R79.9 Abnormal finding of blood chemistry, unspecified
CPT/HCPCS: 36415; 80048; 80061; 80076; 82105; 82306; 83036; 84439; 84443; 85027; 86592; 86803; 87389; 87522